=== PATIENT | male | born 1945 | race Hispanic/Latino ===

== ENCOUNTER 2019-11-16 18:49 | Emergency (ER) | payer SELFPAY ==
[2019-11-16 19:19] LABS: Absolute Lymphocytes (CBC) 2.7 K/uL (0.7-4.9); Basophils % 0.5 % (0-1.3); Hematocrit 41.2 % (39.6-49.0); Lymphocytes % 14.1 % (15.3-44.8); MPV 9.8 fL (7.6-11.3); RBC Red Blood Cell Count 4.65 M/uL (4.33-5.43)
[2019-11-16 19:37] LABS: BUN Blood Urea Nitrogen 18 mg/dL (7-18); Bicarbonate 29 mmol/L (21-32); Glucose Level 157 mg/dL (74-106); Potassium 3.3 mmol/L (3.5-5.1); Sodium Level 144 mmol/L (136-145)
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
[2019-11-16] MEDS ORDERED: TETANUS & DIPHTHERIA TOX,ADULT 0.5 ML VIAL ONE (19:43)
[2019-11-16] MEDS ORDERED: CEFAZOLIN/SWI 1gm 1 GM/10 ML SYR ONE (19:43)
[2019-11-16] MEDS ORDERED: LIDOCAINE 2% MPF 5 ML VIAL ONE (19:43)
[2019-11-16] MEDS ORDERED: MORPHINE 2 MG/ML SYR ONE (19:44)
[2019-11-16] MEDS ORDERED: ONDANSETRON 4 MG/2 ML VIAL ONE (19:44)
[2019-11-16] MEDS ORDERED: ALPRAZOLAM 0.25 MG TABLET PO PRN (19:53)
[2019-11-16] MEDS ORDERED: MORPHINE 4 MG/ML SYR IV PRN (19:53)
[2019-11-16] MEDS ORDERED: ONDANSETRON 4 MG/2 ML VIAL IV PRN (19:53)
[2019-11-16] MEDS ORDERED: ACETAMINOPHEN 500 MG TAB PO PRN (19:53)
[2019-11-16] MEDS ORDERED: NA CHLORIDE 0.9% 1,000 ML IV SCH (20:00)
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
[2019-11-16] MEDS ORDERED: NA CHLORIDE 0.9% 0 ML ONE (20:24)
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
--- NOTE | 2019-11-16 20:46 | RAD REPORT ---
EXAM DESCRIPTION: [place] Single View11/16/2019 7:10 pm CLINICAL HISTORY: Chest pain COMPARISON: none FINDINGS: Lungs appear clear. Heart is normal size. Comminuted mildly depressed fracture involves the mid left clavicle.
--- NOTE | 2019-11-16 20:47 | RAD REPORT ---
EXAM DESCRIPTION: RAD - Shoulder Left 2 View - 11/16/2019 7:10 pm CLINICAL HISTORY: Left shoulder pain status post fall FINDINGS: Comminuted mildly depressed fracture involves the mid left clavicle. No dislocation Old left rib fracture suspected .
[2019-11-16 23:17] VITALS: TEMP 98.5
[2019-11-16 23:20] VITALS: BP 109/65; O2SAT 97
[2019-11-17] MEDS ORDERED: CEFAZOLIN/NS 1gm 1 GM/50 ML BAG IVPB SCH
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
== END 2019-11-16 21:11 | disposition short-term general hospital (02) ==
LOC: ER 18:49 → EDBD 18:49 → ER 21:11
DX: S36.039A Unspecified laceration of spleen, initial encounter (principal); S01.81XA Laceration without foreign body of other part of head, initial encounter; S42.012A Anterior displaced fracture of sternal end of left clavicle, initial encounter for closed fracture; S20.229A Contusion of unspecified back wall of thorax, initial encounter; S20.219A Contusion of unspecified front wall of thorax, initial encounter; V43.62XA Car passenger injured in collision with other type car in traffic accident, initial encounter; Y93.89 Activity, other specified; Y92.410 Unspecified street and highway as the place of occurrence of the external cause; Z88.0 Allergy status to penicillin; Z23 Encounter for immunization
CPT/HCPCS: 36415; 70450; 70486; 71045; 71260; 72125; 74177; 76377; 80048; 85025; 86850; 86900; 86901; 90471; 90714; 96365; 96375; 99285; J0690; J2270; J2405; J7030; Q9967